=== PATIENT | female | born 1960 | race Caucasian/White ===

== ENCOUNTER → 2018-03-14 11:11 | Outpatient (CLI) | payer BC, SELFPAY ==
--- NOTE | 2018-03-14 | DI.CT.S_ITS ---
PROCEDURE: CT SINUS SCREEN WO CON INDICATIONS: SINUSITIS TECHNIQUE: Noncontrast 3.0 mm axial images acquired from the frontal sinuses to the mid-sella, with coronal and sagittal reformats. For radiation dose reduction, the following was used: automated exposure control, adjustment of mA and/or kV according to patient size. COMPARISON: [facility], CT, SINUS SCREEN WO CONTRAST, 09/01/2014, 12:00. FINDINGS: Image quality: Excellent. Maxillary Sinuses: No bony remodeling or destruction. Mucous membrane thickening and retention cyst or polyp again noted in the floor of the right maxillary sinus. Slight mucous membrane thickening in the left maxillary sinus posteriorly. No air-fluid levels. Ethmoid Air Cells: No bony remodeling or destruction. Sinuses are clear. Sphenoid Sinuses: No bony remodeling or destruction. Sinuses are clear. Frontal Sinuses: No bony remodeling or destruction. Sinuses are clear. Ostiomeatal Complexes: Ostiomeatal complexes are patent. The anterior and posterior drainage pathways are patent bilaterally. No Nuzhat cells. Miscellaneous: Visualized intra-orbital contents are normal. Left greater than right alejandro bullosa again noted, no paradoxical turbinate curvature. Turbinate hypertrophy right greater than left does compromise the nasal passage as before. Leftward nasal septal deviation appears unchanged. IMPRESSION: 1. Right greater than left chronic maxillary sinusitis, unchanged. Remainder of sinuses and mastoid air cells remain clear. 2. Nasal septal deviation, turbinate hypertrophy and alejandro bullosa as before. Dictated by: David Keller M.D. on 03/14/2018 at 11:36 Approved by: David Keller M.D. on 03/14/2018 at 11:43
== END ==
PROVIDERS: PCP Family Medicine; Visit Provider Otolaryngology
DX: J32.0 Chronic maxillary sinusitis (principal); J34.2 Deviated nasal septum; J34.3 Hypertrophy of nasal turbinates
CPT/HCPCS: 70486

== ENCOUNTER → 2018-03-28 13:13 | Outpatient (CLI) | payer BC, SELFPAY ==
--- NOTE | 2018-03-28 13:14 | DI.US.S_ITS ---
ULTRASOUND OF RIGHT BREAST: 03/28/2018 CLINICAL: Patient returns for a 6 month follow up of the right breast. Comparison is made to exams dated: 03/28/2018 mammogram, 09/20/2017 ultrasound, 12/05/2016 ultrasound, 11/22/2016 breast MRI, and 10/31/2016 mammogram - [facility]. Color flow and real-time ultrasound of the right breast were performed on the areas of interest. There is a stable 1 cm x 0.5 cm x 1.1 cm oval mass with a circumscribed margin in the right breast at 8 o'clock middle depth. This oval mass is hypoechoic. This correlates with breast MRI findings. Color flow imaging demonstrates that there is no vascularity present. IMPRESSION: PROBABLY BENIGN - FOLLOW-UP RECOMMENDED The stable 1 cm x 0.5 cm x 1.1 cm oval mass in the right breast is probably benign. A follow-up ultrasound in 6 months is recommended. A follow-up ultrasound in 6 months is recommended to demonstrate stability. This exam was interpreted at Station ID: [id number]. Electronically Signed By: Charlie freed/luke:03/28/2018 18:16:42 copy to: Dipak Melchor letter sent: Followup Recommended Ultrasound BI-RADS: 3 Probably benign
--- NOTE | 2018-03-28 13:14 | DI.MG.S_ITS ---
BILATERAL DIGITAL DIAGNOSTIC MAMMOGRAM 3D/2D SHORT-TERM FOLLOW-UP: 03/28/2018 CLINICAL: Short term follow up for bilateral breasts. Family history of breast cancer. Comparison is made to exams dated: 11/22/2016 breast MRI, 07/11/2013 mammogram, and 10/31/2016 mammogram - [facility]. The tissue of both breasts is extremely dense, which lowers the sensitivity of mammography. There is an oval equal density asymmetry with an obscured margin in the left breast posterior depth medial region seen on the craniocaudal view only. This is not significantly changed. No other significant masses, calcifications, or other findings are seen in either breast. IMPRESSION: INCOMPLETE: NEEDS ADDITIONAL IMAGING EVALUATION The oval equal density asymmetry in the left breast is indeterminate. An ultrasound is recommended. There are no abnormalities seen in the right breast to correspond with the mass seen on prior ultrasound and breast MRI at 7-8 o'clock, however, ultrasound is recommended. This exam was interpreted at Station ID: [id number]. NOTE: For mammograms, a report in lay terms will be sent to the patient. Approximately 15% of breast malignancies will not be visualized mammographically. In the management of a palpable breast mass, a negative mammogram must not discourage biopsy of a clinically suspicious lesion. Electronically Signed By: Charlie freed/:03/28/2018 14:35:32 copy to: Dipak Melchor letter sent: Need Ultrasound ACR BI-RADS Category 0: Incomplete [id number]
--- NOTE | 2018-03-28 13:14 | DI.US.S_ITS ---
ULTRASOUND OF LEFT BREAST: 03/28/2018 CLINICAL: Patient returns for a 6 month follow up of the left breast. Comparison is made to exams dated: 03/28/2018 mammogram, 09/20/2017 ultrasound, 12/05/2016 ultrasound, 11/22/2016 breast MRI, 11/10/2016 ultrasound, and 11/10/2016 mammogram - [facility]. Real-time ultrasound of the left breast was performed on the area of interest. IMPRESSION: NEGATIVE There is no sonographic evidence of malignancy. There is no discrete mass seen in the left breast to correspond with the previously described mass lesion. A 1 year screening mammogram is recommended. This exam was interpreted at Station ID: [id number]. Electronically Signed By: Charlie freed/:03/28/2018 18:17:55 copy to: Dipak Melchor letter sent: Normal Exam Ultrasound BI-RADS: 1 Negative
== END ==
PROVIDERS: PCP Family Medicine; Visit Provider Surgery
DX: R92.8 Other abnormal and inconclusive findings on diagnostic imaging of breast (principal); Z80.3 Family history of malignant neoplasm of breast; N63.13 Unspecified lump in the right breast, lower outer quadrant; N63.20 Unspecified lump in the left breast, unspecified quadrant
CPT/HCPCS: 76642; 77066; G0279

== ENCOUNTER → 2019-01-08 11:01 | Outpatient (ROUT) | payer BC, SELFPAY ==
[2019-01-08 11:32] LABS: Influenza A and B by PCR Rapid Negative (Negative)
== END ==
PROVIDERS: PCP Family Medicine; Visit Provider Family Medicine
DX: J11.1 Influenza due to unidentified influenza virus with other respiratory manifestations (principal)
CPT/HCPCS: 87400; 87502

== ENCOUNTER → 2020-09-29 15:51 | Outpatient (CLI) | payer BC, SELFPAY ==
--- NOTE | 2020-09-29 15:57 | DI.MG.S_ITS ---
BILATERAL DIGITAL SCREENING MAMMOGRAM 3D/2D WITH CAD: 09/29/2020 CLINICAL: Routine screening. Family history of breast cancer. Comparison is made to exams dated: 03/28/2018 mammogram, 11/10/2016 mammogram, 10/31/2016 mammogram, and 07/11/2013 mammogram - [facility]. The tissue of both breasts is extremely dense, which lowers the sensitivity of mammography. Current study was also evaluated with a Computer Aided Detection (CAD) system. No significant masses, calcifications, or other findings are seen in either breast. There has been no significant interval change. IMPRESSION: NEGATIVE There is no mammographic evidence of malignancy. A 1 year screening mammogram is recommended. This exam was interpreted at Station ID: [id number]. NOTE: For mammograms, a report in lay terms will be sent to the patient. Approximately 15% of breast malignancies will not be visualized mammographically. In the management of a palpable breast mass, a negative mammogram must not discourage biopsy of a clinically suspicious lesion. Electronically Signed By: Charlie freed/luke:09/29/2020 16:35:37 copy to: Dipak Melchor letter sent: Normal Exam ACR BI-RADS Category 1: Negative [id number]
== END ==
PROVIDERS: PCP Family Medicine; Referring Provider Family Medicine; Visit Provider Family Medicine
DX: Z12.31 Encounter for screening mammogram for malignant neoplasm of breast (principal); Z80.3 Family history of malignant neoplasm of breast
CPT/HCPCS: 77063; 77067

== ENCOUNTER → 2020-10-13 11:09 | Outpatient (CLI) | payer BC, SELFPAY ==
[2020-10-13 13:46] LABS: COVID19 -Nasal RAPID Negative (Negative)
== END ==
PROVIDERS: PCP Family Medicine; Visit Provider Student in an Organized Health Care Education/Training Program
DX: Z20.822 Contact with and (suspected) exposure to COVID-19 (principal)
CPT/HCPCS: 87635

== ENCOUNTER 2020-10-15 13:23 | Day surgery (SDC) | payer BC, SELFPAY ==
[2020-10-15] VITALS (11 sets, daily range): BP systolic 114–166; BP diastolic 57–90; PULSE 66–98; RESP 8–95; TEMP 36.2–36.6; O2SAT 10–99; BMI 29.2
--- NOTE | 2020-10-15 | PATH_ITS ---
[facility] Accession Number: [id number] . 01 Material submitted: . PART A: cecum - FRIABLE MUCOSA - CECUM PART B: colon - SIGMOID POLYP . 02 Diagnosis: A. Cecum, Friable Mucosa, Biopsy: Colonic mucosa with a few small benign lymphoid aggregates and no other diagnostic abnormality. Negative for active, chronic and microscopic colitis. Negative for dysplasia and malignancy. . B. Sigmoid Colon, Polyp, Biopsy: Tubular adenoma. MRV 10/21/2020 1343 Local . 02 Electronically signed: . Liliana Patton MD, Pathologist NPI- [id number] . 01 Gross description: . Part A: FRIABLE MUCOSA - CECUM: Received in formalin is 1 fragment(s) of bazan, soft tissue measuring 0.2 x 0.2 x 0.2 cm submitted entirely in 1 cassette(s) Part B: SIGMOID POLYP: Received in formalin are 2 fragment(s) of bazan, soft tissue measuring 0.1 x 0.1 x 0.1 cm to 0.3 x 0.3 x 0.3 cm submitted entirely in 1 cassette(s) /KULDEEP 10/19/2020 0117 Local . 02 Pathologist provided ICD-10: D12.5 . 02 CPT . 148924, [id number] Performed at: 01 [facility] [address], [place], [place] [id number] MD Charlie Brown MD Phone: [phone] Performed at: 02 [facility] [address] [place], [place] [id number] MD Liliana Patton MD Phone: [phone]
--- NOTE | 2020-10-15 12:08 | P.HP_ITS ---
History of Present Illness History of Present Illness Chief complaint: [facility] [place] Narrative: 60 Years Old Female seen today for consideration of a screening colonoscopy, normal. Last colonoscopy 2004, 10-year recall. There have been no lower GI symptoms suggesting disease such as change in bowel habits, bleeding, abdominal pain or anemia. She does have IBS that flares at times, nothing regular. There's been no family history of colon cancer or colon polyps. Overall health issues have been stable, including no major cardiac events for at least 6 weeks. 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 Meds Home Medications and Allergies Home Medications Medication Instructions Recorded Confirmed Type citalopram 20 mg PO QDAY #0 07/01/16 10/15/20 History ibuprofen 200 mg PO PRN PRN #0 07/01/16 10/15/20 History multivitamin [Multiple Vitamins] 1 tab PO QDAY #0 07/01/16 History [OMEGA3/VITAMIN D] #0 10/08/16 History ascorbic acid (vitamin C) 500 mg PO QDAY #0 10/08/16 10/15/20 History hyoscyamine sulfate 0.125 mg SUBLINGUAL #0 10/08/16 History loratadine [Alavert] 10 mg PO QDAY #0 10/08/16 10/15/20 History Allergies Allergy/AdvReac Type Severity Reaction Status Date / Time No Known Drug Allergies Allergy Verified 10/15/20 14:24 Review of Systems Review of Systems ROS: Yes All systems reviewed with the patient and are negative except as otherwise documented Exam Narrative Exam Narrative: General: well developed, well nourished, in no acute distress, Head: normocephalic and atraumatic, Lungs: normal respiratory effort, clear bilaterally to auscultation, no wheezes rales or rhonchi. Heart: normal rate and regular rhythm, no murmurs, rubs, gallops, or clicks, Abdomen: abdomen soft and non-tender without masses, organomegaly, or abdominal wall hernias, bowel sounds positive. Skin: intact without suspicious lesions or rashes, Psych: alert and cooperative; normal mood and affect; normal attention span and concentration; cognition, remote and recent memory appear to be intact, Assessment & Plan Assessment & Plan narrative: 1. Screening for colon cancer Plan for colonoscopy. The nature and character of the procedure as well as anticipated results were discussed. The possibility of not completing the procedure was also discussed. Possible complications including aspiration pneumonia, bleeding, perforation and reaction to medications either for sedation or preparation and missed lesions were discussed. Questions were answered and proceeding to the colonoscopy was elected. Informed consent signed. I sincerely appreciate the referral allowing me to participate in this patient's care. Please contact me with any questions or concerns.
--- NOTE | 2020-10-15 12:10 | PM.OP.ENDO ---
Operative Date/Time/Diagnoses Date of procedure: 10/15/20 Procedure Notes SCOAP/Timeout: 2:49 p.m. Procedure in detail: ENDOSCOPIST: Emmy Yang MD Sedation RN: Krishna Li RN Sedation start time: 2:50 p.m. Sedation end time: 3:03 p.m. PROCEDURE: Colonoscopy with biopsy INDICATIONS: 1. Screening for colon cancer MEDICATION: Levsin 0.125 mg sublingual, incremental doses of Versed and fentanyl until appropriate level sedation achieved. ASA CLASS: 2 CECAL WITHDRAWAL TIME: 13 minutes COMPLICATIONS: None. EXTENT OF PROCEDURE: Cecum. QUALITY OF PREP: Good with portions of liquid stool. PROCEDURE: Prior to insertion of the colonoscope, a digital rectal examination was accomplished with circumferential palpation of the distal rectal mucosa without significant findings being noted. The high-definition pediatric colonoscope was passed into the rectum in the usual fashion and advanced over to the cecum without difficulty. The ileocecal valve, appendiceal stoma, and medial wall all could be inspected and cecum was noted to be friable, targeted biopsy taken x1. ASCENDING COLON: As the colonoscope was withdrawn, care was taken to expose and inspect the haustral folds and no abnormalities were seen. HEPATIC FLEXURE: Normal, no polyps, diverticula or other abnormalities. TRANSVERSE COLON: Normal, no polyps, diverticula or other abnormalities. DESCENDING COLON: Normal, no polyps, diverticula or other abnormalities. SIGMOID COLON: 4 mm polyp removed with cold biopsy forceps, excellent hemostasis. Normal no polyps, diverticula or other abnormalities. RECTUM: Normal. J maneuver was produced. There was no significant perianal disease. The J maneuver was broken. The remainder of the rectum was inspected and there was no external hemorrhoid disease, anal papillae noted. The scope was withdrawn. IMPRESSION: 1. Sigmoid polyp x1, 4 mm, removed with cold biopsy forceps 2. Cecal friability, biopsy taken x1 3. Anal papillae PLAN: 1. Follow-up in clinic status post pathology results. The possibility of a missed lesion including a malignancy has been discussed with the patient previously. Potential alarm symptoms have been discussed and should be reported immediately.
[2020-10-15] MEDS: HYOSCYAMINE 0.125 MG TABLET PO (14:30)
[2020-10-15] MEDS: LACTATED RINGERS 1,000 ML 200 ML IV (14:31)
[2020-10-15] MEDS: MIDAZOLAM 5 MG/5 ML VIAL IV (14:59)
[2020-10-15] MEDS: fentaNYL 250 MCG/5 ML INJ IV (14:59)
--- NOTE | 2020-10-15 15:09 | SUR.OPER ---
nasal airway #6 placed for respiratory depression
== END 2020-10-15 16:35 | disposition home or self-care (01) ==
PROVIDERS: PCP Family Medicine; Referring Provider Student in an Organized Health Care Education/Training Program; Visit Provider Student in an Organized Health Care Education/Training Program
PROC: 0DJD8ZZ Inspection of Lower Intestinal Tract, Via Natural or Artificial Opening Endoscopic (ICD-10-PCS; CPT 45378; principal; 2020-10-15 14:30)
DX: D12.5 Benign neoplasm of sigmoid colon (principal); K64.4 Residual hemorrhoidal skin tags; Z12.11 Encounter for screening for malignant neoplasm of colon; F32.9 Major depressive disorder, single episode, unspecified; F41.9 Anxiety disorder, unspecified; E78.5 Hyperlipidemia, unspecified; K58.9 Irritable bowel syndrome, unspecified
CPT/HCPCS: 45380; J2250; J3010

== ENCOUNTER → 2021-12-02 09:11 | Outpatient (CLI) | payer BC, SELFPAY ==
--- NOTE | 2021-12-02 | DI.MG.S_ITS ---
BILATERAL DIGITAL SCREENING MAMMOGRAM 3D/2D WITH CAD: 12/02/2021 CLINICAL: Routine screening. Family history of breast cancer. Comparison is made to exams dated: 09/29/2020 mammogram, 03/28/2018 mammogram, and 10/31/2016 mammogram - [facility]. The tissue of both breasts is extremely dense, which lowers the sensitivity of mammography. Current study was also evaluated with a Computer Aided Detection (CAD) system. There are benign vascular calcifications in both breasts. No significant masses, calcifications, or other findings are seen in either breast. There has been no significant interval change. IMPRESSION: BENIGN There is no mammographic evidence of malignancy. A 1 year screening mammogram is recommended. This exam was interpreted at Station ID: [id number]. NOTE: For mammograms, a report in lay terms will be sent to the patient. Approximately 15% of breast malignancies will not be visualized mammographically. In the management of a palpable breast mass, a negative mammogram must not discourage biopsy of a clinically suspicious lesion. Electronically Signed By: Jaspreet awad/luke:12/02/2021 11:09:24 copy to: Dipak Melchor letter sent: Normal Exam ACR BI-RADS Category 2: Benign Finding(s) 3342F
== END ==
PROVIDERS: PCP Family Medicine; Referring Provider Family Medicine; Visit Provider Family Medicine
DX: Z12.31 Encounter for screening mammogram for malignant neoplasm of breast (principal); Z80.3 Family history of malignant neoplasm of breast
CPT/HCPCS: 77063; 77067

== ENCOUNTER → 2022-01-24 14:13 | Outpatient (CLI) | payer BC, SELFPAY ==
--- NOTE | 2022-01-24 | DI.RAD.S_ITS ---
PROCEDURE: XR DEXA AXIAL SKELETON INDICATIONS: Asymptomatic menopausal state COMPARISON: None. FINDINGS: This blank DEXA report has been sent in error by the PACS system. The correct and complete report will be forthcoming in 1-2 days. Thank you for your patience and understanding. Dictated by: Renetta Slaughter MD, PhD on 01/24/2022 at 18:02 Approved by: Renetta Slaughter MD, PhD on 01/24/2022 at 18:02
== END ==
PROVIDERS: PCP Family Medicine; Referring Provider Family Medicine; Visit Provider Family Medicine
DX: Z78.0 Asymptomatic menopausal state (principal)
CPT/HCPCS: 77080; 77081